=== PATIENT | female | born 1990 | race Hispanic/Latino ===

== ENCOUNTER 2018-01-27 11:35 | Emergency (ER) | payer OTHER, SELFPAY ==
[2018-01-27 14:20] LABS: Urine Blood NEGATIVE (NEG); Urine Glucose NEGATIVE (NEG); Urine Protein NEGATIVE (NEG); Urine Specific Gravity >1.030 (1.005-1.030)
--- NOTE | 2018-01-27 15:28 | RAD REPORT ---
EXAM DESCRIPTION: US - Abdomen Exam Limited - 01/27/2018 3:20 pm CLINICAL HISTORY: Abdominal pain. COMPARISON: None. FINDINGS: The gallbladder wall is not thickened. A gallstone is not seen. The biliary tree is normal caliber. Liver has increased echotexture consistent with fatty infiltration IMPRESSION: Unremarkable gallbladder ultrasound.
[2018-01-27 17:12] LABS: Absolute Lymphocytes (CBC) 1.7 K/uL (0.7-4.9); Absolute Monocytes 0.5 K/uL (0.1-1.3); Absolute Neutrophil 4.1 K/uL (1.8-8.0); Basophils % 0.3 % (0-1.3); Eosinophils % 1.8 % (0-4.4); Hematocrit 36.2 % (36.0-45.0); Lymphocytes % 26.4 % (15.3-44.8); MCH 30.9 pg (27.0-35.0); MCV 87.3 fL (80-100); MPV 9.1 fL (7.6-11.3); RBC Red Blood Cell Count 4.15 M/uL (3.86-4.86)
[2018-01-27 18:01] LABS: ALT/SGPT 88 U/L (12-78); AST/SGOT 27 U/L (15-37); Albumin 3.4 g/dL (3.4-5.0); Alkaline Phosphatase 95 U/L (45-117); Amylase Level 46 U/L (25-115); BUN Blood Urea Nitrogen 8 mg/dL (7-18); Bicarbonate 25 mmol/L (21-32); Bilirubin Direct 0.2 mg/dL (0-0.2); Bilirubin Total 0.7 mg/dL (0.2-1.0); Glucose Level 87 mg/dL (74-106); Lipase 84 U/L (73-393); Potassium 3.3 mmol/L (3.5-5.1); Protein, Total 7.5 g/dL (6.4-8.2); Sodium Level 139 mmol/L (136-145)
--- NOTE | 2018-01-27 18:46 | RAD REPORT ---
EXAM DESCRIPTION: CT - Abdomen Pelvis W Contrast - 01/27/2018 6:22 pm CLINICAL HISTORY: Abdominal pain/right-sided pain COMPARISON: none. TECHNIQUE: Computed axial tomography of the abdomen pelvis was obtained. 100 cc Isovue-300 was admin istered intravenously. Oral contrast was not requested which limits evaluation of bowel. All CT scans are performed using dose optimization technique as appropriate and may include automated exposure control or mA/KV adjustment according to patient size. FINDINGS: The liver has a diminished attenuation consistent with fatty infiltration. The liver is mi ldly enlarged Spleen, pancreas, adrenal and kidneys appear unremarkable. There is no evidence of diverticulitis. The appendix is not visualized IMPRESSION: Mild hepatomegaly with fatty infiltration
--- NOTE | 2018-01-27 18:59 | ER ---
Nurse's Notes [facility] Name: Joie Larsen Age: 27 yrs Sex: Female : 1990 Arrival Date: 01/27/2018 Time: 11:37 Bed 14 Private MD: Diagnosis: Low back pain Presentation: 01/27 12:22 Presenting complaint: Patient states: Right mid back pain that started 3 days ago. aj Radiates around flank. 12:23 Transition of care: patient was not received from another setting of care. Onset of aj symptoms was January 24, 2018. Risk Assessment: Do you want to hurt yourself or someone else? Patient reports no desire to harm self or others. Initial Sepsis Screen: Does the patient meet any 2 criteria? No. Patient's initial sepsis screen is negative. Does the patient have a suspected source of infection? No. Patient's initial sepsis screen is negative. Care prior to arrival: None. 12:23 Method Of Arrival: Ambulatory aj 12:23 Acuity: GRACE 3 aj Triage Assessment: 12:24 General: Appears in no apparent distress. comfortable, Behavior is calm, cooperative, aj appropriate for age. Pain: Complains of pain in right mid back. Neuro: Level of Consciousness is awake, alert, obeys commands, Oriented to person, place, time, situation, Appropriate for age. Respiratory: Airway is patent Respiratory effort is even, unlabored, Respiratory pattern is regular, symmetrical. : Reports pain in right in lower back. Derm: Skin is intact, is healthy with good turgor, Skin is pink, warm \T\ dry. normal. Musculoskeletal: Circulation, motion, and sensation intact. 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 - Social history:: Smoking status: Patient/guardian denies using tobacco. - Ebola Screening: : Patient negative for fever greater than or equal to 101.5 degrees Fahrenheit, and additional compatible Ebola Virus Disease symptoms Patient denies exposure to infectious person Patient denies travel to an Ebola-affected area in the 21 days before illness onset No symptoms or risks identified at this time. Screenin:37 Abuse screen: Denies threats or abuse. Nutritional screening: No deficits noted. tl3 Tuberculosis screening: No symptoms or risk factors identified. Fall Risk None identified. Assessment: 14:37 General: Appears comfortable, well groomed, well developed, well nourished, Behavior is tl3 calm, cooperative, appropriate for age. Pain: Complains of pain in back and right mid back. Neuro: Level of Consciousness is awake, alert, obeys commands, Oriented to person, place, time, situation, Appropriate for age. Cardiovascular: Patient's skin is warm and dry. Respiratory: Airway is patent Respiratory effort is even, unlabored, Respiratory pattern is regular, symmetrical. GI: Abdomen is round. : Urine is clear. : Reports pain in right flank(s), in lower back. EENT: No signs and/or symptoms were reported regarding the EENT system. Derm: No signs and/or symptoms reported regarding the dermatologic system. Musculoskeletal: No signs and/or symptoms reported regarding the musculoskeletal system. 16:02 Reassessment: Patient appears in no apparent distress at this time. No changes from tl3 previously documented assessment. Patient and/or family updated on plan of care and expected duration. Pain level reassessed. Patient is alert, oriented x 3, equal unlabored respirations, skin warm/dry/pink. redrew and sent off labs, 23g butterfly to LAC. 17:14 Reassessment: Patient appears in no apparent distress at this time. No changes from tl3 previously documented assessment. Patient and/or family updated on plan of care and expected duration. Pain level reassessed. Patient is alert, oriented x 3, equal unlabored respirations, skin warm/dry/pink. 19:12 Reassessment: Patient appears in no apparent distress at this time. No changes from ak1 previously documented assessment. Patient and/or family updated on plan of care and expected duration. Pain level reassessed. Patient is alert, oriented x 3, equal unlabored respirations, skin warm/dry/pink. Vital Signs: 12:24 BP 112 / 76; Pulse 97; Resp 16; Temp 98.0; Pulse Ox 100% on R/A; Weight 90.72 kg; aj Height 5 ft. 3 in. (160.02 cm); 14:37 BP 131 / 86; Pulse 70; Resp 18; Pulse Ox 99% ; tl3 16:02 BP 108 / 73; Pulse 69; Resp 18; Pulse Ox 99% on R/A; tl3 17:14 BP 114 / 76; Pulse 76; Resp 16; Pulse Ox 98% on R/A; tl3 12:24 Body Mass Index 35.43 (90.72 kg, 160.02 cm) aj ED Course: 11:37 Patient arrived in ED. rg4 12:23 Triage completed. aj 12:24 Arm band placed on left wrist. Patient placed in waiting room, Patient notified of wait aj time Patient Given urine cup. Patient has family member in ER and reports that she may be in the room visiting if she is called. 14:23 Ernesto Jenkins MD is Attending Physician. kdr 14:23 Anthony Finnegan PA is PHCP. cp 14:24 Barbi Wagner, MEERA is Primary Nurse. dm5 14:37 Patient has correct armband on for positive identification. Placed in gown. Bed in low tl3 position. Call light in reach. Side rails up X 1. Pulse ox on. NIBP on. Door closed. Noise minimized. Lights dimmed. Warm blanket given. Pillow given. 14:37 No provider procedures requiring assistance completed. Inserted saline lock: 20 gauge tl3 in right antecubital area, using aseptic technique. Blood collected. 15:21 US Abdomen Limited In Process Unspecified. EDMS 16:33 Radiology exam delayed due to lab results not completed at this time. (BUN/Creatinine). vr 16:53 Radiology exam delayed due to lab results not completed at this time. (BUN/Creatinine). nj 17:19 Radiology exam delayed due to lab results not completed at this time. (BUN/Creatinine). vr 17:29 Radiology exam delayed due to lab results not completed at this time. (BUN/Creatinine). vm2 17:52 Radiology exam delayed due to lab results not completed at this time. (BUN/Creatinine). vr 18:[address] via wheelchair. nj 18:22 CT completed. Patient tolerated procedure well. Patient moved back from CT. nj 18:22 CT Abd/Pelvis - W/Contrast: no oral contrast In Process Unspecified. EDMS 19:06 IV discontinued, intact, bleeding controlled, No redness/swelling at site. Pressure ak1 dressing applied. Administered Medications: No medications were administered Outcome: 18:59 Discharge ordered by . dragan 19:06 Discharged to home ambulatory. ak1 19:06 Condition: good 19:06 Discharge instructions given to patient, Instructed on discharge instructions, follow up and referral plans. Demonstrated understanding of instructions, follow-up care. 19:12 Patient left the ED. ak1 Signatures: Dispatcher [employer] EDBarbi Fernandes, RN RN Allie Goyal RN Ernesto Yan MD MD kdr Davis, Victoria vr Krenek, Amber, RN RN ak1 Anthony Finnegan PA PA cp Garcia, Rubi rg4 Lyndon Reagan Victoria 2 Martha Ashby RN RN tl3 Corrections: (The following items were deleted from the chart) 12:23 12:22 Presenting complaint: Patient states: Right mid back pain that started 3 days aj ago. aj
--- NOTE | 2018-01-27 18:59 | EDPHYS ---
Physician Documentation [facility] Name: Joie Larsen Age: 27 yrs Sex: Female : 1990 Arrival Date: 01/27/2018 Time: 11:37 Bed 14 Private MD: ED Physician Ernesto Jenkins HPI: 01/27 14:30 This 27 yrs old Female presents to ER via Ambulatory with complaints of Back cp Pain. 14:30 The patient presents with pain that is acute, with no known mechanism of injury. Onset: cp The symptoms/episode began/occurred 3 day(s) ago. 14:30 Associated signs and symptoms: Pertinent negatives: chest pain, constipation, dysuria, cp fever, headache, incontinence, numbness, urinary retention, vomiting, weakness. Modifying factors: the patient symptoms are aggravated by movement. Severity of symptoms: in the emergency department the symptoms are unchanged, despite home interventions. 14:30 The symptoms are located in the right midback. cp 14:30 The pain radiates to the abdomen. 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 - Social history:: Smoking status: Patient/guardian denies using tobacco. - Ebola Screening: : Patient negative for fever greater than or equal to 101.5 degrees Fahrenheit, and additional compatible Ebola Virus Disease symptoms Patient denies exposure to infectious person Patient denies travel to an Ebola-affected area in the 21 days before illness onset No symptoms or risks identified at this time. ROS: 14:35 Constitutional: Negative for body aches, chills, fever, poor PO intake. cp 14:35 Eyes: Negative for injury, pain, redness, and discharge. cp 14:35 Cardiovascular: Negative for chest pain, palpitations. 14:35 Respiratory: Negative for cough, shortness of breath, wheezing. 14:35 Abdomen/GI: Positive for abdominal pain, Negative for vomiting, diarrhea, constipation, black/tarry stool, rectal bleeding. 14:35 Back: Positive for pain at rest, pain with movement, flank pain, on the right, of the right mid back. 14:35 : Negative for urinary symptoms. 14:35 Skin: Negative for cellulitis, rash. 14:35 All other systems are negative. Exam: 14:42 Constitutional: The patient appears in no acute distress, alert, awake, cp non-diaphoretic, non-toxic, well developed, well nourished. 14:42 Head/Face: Normocephalic, atraumatic. Eyes: Pupils equal round and reactive to light, cp extra-ocular motions intact. Lids and lashes normal. Conjunctiva and sclera are non-icteric and not injected. Cornea within normal limits. Periorbital areas with no swelling, redness, or edema. ENT: Nares patent. No nasal discharge, no septal abnormalities noted. Tympanic membranes are normal and external auditory canals are clear. Oropharynx with no redness, swelling, or masses, exudates, or evidence of obstruction, uvula midline. Mucous membranes moist. Chest/axilla: Normal chest wall appearance and motion. Nontender with no deformity. No lesions are appreciated. Cardiovascular: Regular rate and rhythm with a normal S1 and S2. No gallops, murmurs, or rubs. Normal PMI, no JVD. No pulse deficits. Respiratory: Lungs have equal breath sounds bilaterally, clear to auscultation and percussion. No rales, rhonchi or wheezes noted. No increased work of breathing, no retractions or nasal flaring. 14:42 Abdomen/GI: Inspection: obese Bowel sounds: active, all quadrants, Palpation: soft, in all quadrants, mild abdominal tenderness, in the anterior aspect of right lateral abdomen and right upper quadrant, rebound tenderness, is not appreciated, involuntary guarding, is not appreciated. 14:42 Back: pain, that is mild, of the right mid back. 14:42 Skin: cellulitis, is not appreciated, no rash present. 14:42 Neuro: Orientation: to person, place \T\ time. Cerebellar function: is grossly normal, Motor: moves all fours, strength is normal, Sensation: no obvious gross deficits, Gait: is steady. Vital Signs: 12:24 BP 112 / 76; Pulse 97; Resp 16; Temp 98.0; Pulse Ox 100% on R/A; Weight 90.72 kg; aj Height 5 ft. 3 in. (160.02 cm); 14:37 BP 131 / 86; Pulse 70; Resp 18; Pulse Ox 99% ; tl3 16:02 BP 108 / 73; Pulse 69; Resp 18; Pulse Ox 99% on R/A; tl3 17:14 BP 114 / 76; Pulse 76; Resp 16; Pulse Ox 98% on R/A; tl3 12:24 Body Mass Index 35.43 (90.72 kg, 160.02 cm) aj MDM: 14:26 Patient medically screened. cp 15:00 Differential diagnosis: Cholelithiasis Pyelonephritis Ureterolithiasis UTI. cp 18:58 Data reviewed: vital signs, nurses notes, lab test result(s), radiologic studies, CT cp scan, ultrasound. 18:58 Counseling: I had a detailed discussion with the patient and/or guardian regarding: the cp historical points, exam findings, and any diagnostic results supporting the discharge/admit diagnosis, lab results, radiology results, to return to the emergency department if symptoms worsen or persist or if there are any questions or concerns that arise at home. Response to treatment: the patient's symptoms have markedly improved after treatment, VSS. Pain improved with meds. Will discharge to home for continued monitoring. 01/27 14:12 Order name: Urine Dipstick--Ancillary (enter results); Complete Time: 14:27 01/27 14:12 Order name: Urine --Ancillary (enter results); Complete Time: 14:27 01/27 14:27 Order name: Amylase, Serum; Complete Time: 18:52 01/27 14:27 Order name: Basic Metabolic Panel; Complete Time: 18:52 01/27 18:53 Interpretation: Normal except: K 3.3; CL 109. cp 01/27 11:51 Order name: Urine Test (obtain specimen); Complete Time: 18:51 w 01/27 11:51 Order name: Urine Dipstick-Ancillary (obtain specimen); Complete Time: 18:51 snw 01/27 14:27 Order name: CBC with Diff; Complete Time: 17:57 01/27 14:27 Order name: Creatinine for Radiology; Complete Time: 17:57 01/27 14:27 Order name: Hepatic Function; Complete Time: 18:52 01/27 18:52 Interpretation: Normal except: ALT 88; GLOB 4.1; A/G 0.8. cp 01/27 14:27 Order name: Lipase; Complete Time: 18:52 cp 01/27 14:49 Order name: US Abdomen Limited; Complete Time: 15:46 cp 01/27 15:47 Order name: CT Abd/Pelvis - W/Contrast: no oral contrast; Complete Time: 18:52 cp 01/27 14:27 Order name: IV Saline Lock; Complete Time: 14:56 cp 01/27 14:27 Order name: Labs collected and sent; Complete Time: 14:56 cp 01/27 15:14 Order name: Labs - recollect needed; Complete Time: 18:54 bd 01/27 16:36 Order name: Labs - recollect needed; Complete Time: 17:52 bd Administered Medications: No medications were administered Disposition: 01/27/18 18:59 Discharged to Home. Impression: Low back pain. - Condition is Stable. - Discharge Instructions: Back Pain, Adult, Back Exercises, [id number]. - Prescriptions for orphenadrine citrate 100 mg Oral Tablet Sustained Release - take 1 tablet by ORAL route 2 times per day As needed; 20 tablet. Naprosyn 500 mg Oral Tablet - take 1 tablet by ORAL route 2 times per day take with food; 20 tablet. - Work release form, Medication Reconciliation Form, Thank You Letter, Antibiotic Education, Prescription Opioid Use form. - Follow up: Private Physician; When: 2 - 3 days; Reason: Recheck today's complaints. - Problem is new. - Symptoms have improved. Signatures: Dispatcher [employer] EDDE Delmy Hemphill Amanda, RN RN aj Therrien, Shelly, ALONZO-C INSERTER OPERATOR-Csnw Yane Hidalgo RN RN ak1 Anthony Finnegan PA PA cp Corrections: (The following items were deleted from the chart) 14:56 11:52 UA MICROSCOPIC+U.LAB.BRZ ordered. EDDE EDMS 14:57 11:52 Urine Culture+BA.LAB.BRZ ordered. EDDE EDMS 19:12 18:59 01/27/2018 18:59 Discharged to Home. Impression: Low back pain. Condition is ak1 Stable. Forms are Medication Reconciliation Form, Thank You Letter, Antibiotic Education, Prescription Opioid Use. Follow up: Private Physician; When: 2 - 3 days; Reason: Recheck today's complaints. Problem is new. Symptoms have improved. cp 01/28 19:01/27 14:30 The symptoms are located in the low back, cp cp 01/28 19:01/27 14:30 The pain radiates to the right low back, to the abdomen, cp cp
[2018-01-27 20:20] VITALS: TEMP 98
[2018-01-27 20:24] VITALS: BP 114/76; O2SAT 98
== END 2018-01-27 19:12 | disposition home or self-care (01) ==
LOC: ER 11:35
DX: M54.5 Low back pain (principal); F32.9 Major depressive disorder, single episode, unspecified
CPT/HCPCS: 36415; 74177; 76705; 80048; 80076; 81003; 81025; 82150; 83690; 85025; 99284; Q9967

== ENCOUNTER 2018-02-03 07:44 | Emergency (ER) | payer SELFPAY ==
--- NOTE | 2018-02-03 08:22 | EDPHYS ---
Physician Documentation [facility] Name: Joie Larsen Age: 27 yrs Sex: Female : 1990 Arrival Date: 02/03/2018 Time: 07:50 Bed 14 Private MD: ED Physician Jaquan Avery HPI: 02/03 08:16 This 27 yrs old Female presents to ER via Ambulatory with complaints of Rash. cp 08:16 The patient's rash thought to be caused by an unknown cause. The rash is located on the cp abdomen. The rash can be described as erythematous, patchy, vesicular. Onset: The symptoms/episode began/occurred 3 day(s) ago. Associated signs and symptoms: Pertinent positives: pain in area days prior to noticing rash. Severity of symptoms: in the emergency department the symptoms are unchanged despite home interventions. 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 - Social history:: Smoking status: Patient/guardian denies using tobacco. - Ebola Screening: : Patient denies exposure to infectious person Patient denies travel to an Ebola-affected area in the 21 days before illness onset. ROS: 08:16 Constitutional: Negative for body aches, chills, fever, poor PO intake. cp 08:16 Eyes: Negative for injury, pain, redness, and discharge. cp 08:16 ENT: Negative for drainage from ear(s), ear pain, sore throat, difficulty swallowing, difficulty handling secretions. 08:16 Cardiovascular: Negative for chest pain, palpitations. 08:16 Respiratory: Negative for cough, shortness of breath, wheezing. 08:16 Abdomen/GI: Negative for nausea, vomiting, and diarrhea, black/tarry stool, rectal bleeding. 08:16 Back: Positive for pain at rest. 08:16 Skin: Positive for rash, of the back and abdomen. 08:16 All other systems are negative. Exam: 08:17 Head/Face: Normocephalic, atraumatic. cp 08:17 Constitutional: The patient appears in no acute distress, alert, awake, non-toxic, well developed, well nourished. 08:17 Eyes: Periorbital structures: appear normal, Conjunctiva: normal, no exudate, no injection, Lids and lashes: appear normal, bilaterally. 08:17 Chest/axilla: Exam negative for rash, tenderness. 08:17 Cardiovascular: Rate: normal. 08:17 Respiratory: the patient does not display signs of respiratory distress, Respirations: normal, no use of accessory muscles, no retractions, no splinting, no tachypnea. 08:17 Skin: rash can be described as erythematous, vesicular, grouped, on the abdomen, approximate right T9 dermatome. Vital Signs: 07:55 BP 133 / 82; Pulse 80; Resp 16; Temp 97.4(TE); Pulse Ox 100% on R/A; Weight 90.72 kg; ss Height 5 ft. 4 in. (162.56 cm); Pain 8/10; 08:30 BP 112 / 84; Pulse 64; Resp 17; Pulse Ox 97% on R/A; rb1 07:55 Body Mass Index 34.33 (90.72 kg, 162.56 cm) ss MDM: 07:55 Patient medically screened. cp 08:17 Differential diagnosis: impetigo, varicella, allergic reaction, contact dermatitis. cp 08:21 Data reviewed: vital signs, nurses notes, and as a result, I will discharge patient. cp 08:21 Counseling: I had a detailed discussion with the patient and/or guardian regarding: the cp historical points, exam findings, and any diagnostic results supporting the discharge/admit diagnosis, the need for outpatient follow up, a family practitioner, to return to the emergency department if symptoms worsen or persist or if there are any questions or concerns that arise at home. Administered Medications: No medications were administered Disposition: 08:50 Co-signature as Attending Physician, Jaquan Avery MD. rn Disposition: 02/03/18 08:22 Discharged to Home. Impression: Zoster [herpes zoster]. - Condition is Stable. - Discharge Instructions: Shingles. - Prescriptions for Acyclovir 800 mg Oral Tablet - take 1 tablet by ORAL route 5 times per day for 7 days; 35 tablet. capsaicin 0.075 % Topical cream - apply 1 application by TOPICAL route 3 times per day As needed; 45 gram. - Medication Reconciliation Form, Thank You Letter, Antibiotic Education, Prescription Opioid Use form. - Follow up: Private Physician; When: 2 - 3 days; Reason: Recheck today's complaints. - Problem is new. - Symptoms are unchanged. Signatures: Jaquan Avery MD MD rn Smirch, Shelby, RN RN ss Page, Corey, PA PA cp Barber, Rebecca, RN RN rb1 Corrections: (The following items were deleted from the chart) 08:32 08:22 02/03/2018 08:22 Discharged to Home. Impression: Zoster [herpes zoster]. rb1 Condition is Stable. Forms are Medication Reconciliation Form, Thank You Letter, Antibiotic Education, Prescription Opioid Use. Follow up: Private Physician; When: 2 - 3 days; Reason: Recheck today's complaints. Problem is new. Symptoms are unchanged. cp
--- NOTE | 2018-02-03 08:22 | ER ---
Nurse's Notes [facility] Unit Name: Joie Larsen Age: 27 yrs Sex: Female : 1990 Arrival Date: 02/03/2018 Time: 07:50 Bed 14 Private MD: Diagnosis: Zoster [herpes zoster] Presentation: 02/03 07:52 Presenting complaint: Patient states: Seen a week ago for back pain, and reports that ss burning, painful rash appeared day after being discharged to area where she was having discomfort. Small rash noted to R low back, flank and R lower abdomen. Transition of care: patient was not received from another setting of care. Onset of symptoms was January 28, 2018. Risk Assessment: Do you want to hurt yourself or someone else? Patient reports no desire to harm self or others. Initial Sepsis Screen: Does the patient meet any 2 criteria? No. Patient's initial sepsis screen is negative. Does the patient have a suspected source of infection? No. Patient's initial sepsis screen is negative. Care prior to arrival: None. 07:52 Method Of Arrival: Ambulatory 07:52 Acuity: GRACE 5 ss [employer]ER: 07:52 LMP 01/22/2018 rb1 Historical: - Allergies: 07:55 No Known Allergies; ss - Home Meds: 07:55 sertraline Oral [Active]; ss - PMHx: 07:55 Depression; ss - PSHx: 07:55 Tubal ligation; Appendectomy; ss 07:52 ; rb1 - Immunization history:: Adult Immunizations up to date. - Social history:: Smoking status: Patient/guardian denies using tobacco. - Ebola Screening: : Patient denies exposure to infectious person Patient denies travel to an Ebola-affected area in the 21 days before illness onset. Screenin:52 Abuse screen: Denies threats or abuse. Nutritional screening: No deficits noted. rb1 Tuberculosis screening: No symptoms or risk factors identified. Fall Risk None identified. Assessment: 07:52 General: Appears in no apparent distress. comfortable, obese, Behavior is calm, rb1 cooperative, Reports chills for 2-3 days, Denies fever. Pain: Complains of pain in abdomen, back, and righ side. Pain currently is 8 out of 10 on a pain scale. Pain began 2-3 days ago. Neuro: Level of Consciousness is awake, alert, obeys commands, Oriented to person, place, time, situation. Cardiovascular: Capillary refill < 3 seconds is brisk in bilateral fingers. Respiratory: Airway is patent Respiratory effort is even, unlabored, Respiratory pattern is regular, symmetrical. GI: Reports diarrhea, since x 3 days. : No signs and/or symptoms were reported regarding the genitourinary system. Derm: Rash noted that is red, on abdomen, back, and right side. Musculoskeletal: Range of motion: intact in all extremities. Vital Signs: 07:55 BP 133 / 82; Pulse 80; Resp 16; Temp 97.4(TE); Pulse Ox 100% on R/A; Weight 90.72 kg; ss Height 5 ft. 4 in. (162.56 cm); Pain 8/10; 08:30 BP 112 / 84; Pulse 64; Resp 17; Pulse Ox 97% on R/A; rb1 07:55 Body Mass Index 34.33 (90.72 kg, 162.56 cm) ED Course: 07:50 Patient arrived in ED. rb1 07:51 Anthony Finnegan PA is PHCP. cp 07:51 Jaquan Avery MD is Attending Physician. cp 07:52 Patient has correct armband on for positive identification. Bed in low position. Call rb1 light in reach. Side rails up X 1. Pulse ox on. NIBP on. 07:54 Triage completed. ss 07:55 Arm band placed on right wrist. ss 08:02 Rosa Gamble, RN is Primary Nurse. rb1 08:31 No provider procedures requiring assistance completed. Patient did not have IV access rb1 during this emergency room visit. Administered Medications: No medications were administered Outcome: 08:22 Discharge ordered by . cp 08:31 Discharged to home ambulatory. rb1 08:31 Condition: stable 08:31 Discharge instructions given to patient, Instructed on discharge instructions, follow up and referral plans. medication usage, Demonstrated understanding of instructions, follow-up care, medications, Prescriptions given X 2. 08:32 Patient left the ED. rb1 Signatures: Roseline Mccullough RN RN Anthony Finnegan PA PA cp Barber, Rebecca, RN RN rb1
[2018-02-03 08:37] VITALS: TEMP 97.4
[2018-02-03 08:39] VITALS: BP 112/84; O2SAT 97
== END 2018-02-03 08:32 | disposition home or self-care (01) ==
LOC: ER 07:44
DX: B02.9 Zoster without complications (principal); F32.9 Major depressive disorder, single episode, unspecified
CPT/HCPCS: 99283